=== PATIENT | male | born 1970 | race Caucasian/White ===

== ENCOUNTER 2022-12-10 15:44 | Inpatient (IN) | payer OTHER ==
[~2022-12-10] VITALS: Ht 172.7 cm; Wt 113.4 kg
[2022-12-10 15:51] VITALS: BP 215/125
[2022-12-10] MEDS ORDERED: CLONIDINE HYDROCHLORIDE 0.1 MG TAB PO ONE (16:00)
--- NOTE | 2022-12-10 16:08 | NUR ---
PT AMBULATED TO ER BED 4
[2022-12-10 16:31] LABS: BASOPHILS # (AUTO) 0.1 K/uL (0.00-0.22); BASOPHILS % (AUTO) 0.8 % (0.0-2.0); EOSINOPHILS # (AUTO) 0.1 K/uL (0-0.4); EOSINOPHILS % (AUTO) 1.9 % (0.0-4.0); HEMATOCRIT 46.5 % (36-52); HEMOGLOBIN 16.2 g/dL (12.0-18.0); LYMPHOCYTES # (AUTO) 1.9 K/uL (2.0-11.5); LYMPHOCYTES % (AUTO) 25.9 % (20.5-51.1); MEAN CORPUSCULAR HEMOGLOBIN 32 pg (27-31); MEAN CORPUSCULAR HGB CONC 35 g/dL (33-37); MEAN CORPUSCULAR VOLUME 90.4 fL (80-94); MONOCYTES # (AUTO) 0.6 K/uL (0.8-1.0); MONOCYTES % (AUTO) 8.7 % (1.7-9.3); NEUTROPHILS # (AUTO) 4.7 K/uL (1.8-7.7); NEUTROPHILS % (AUTO) 62.7 % (42.2-75.2); PLATELET COUNT (AUTO) 198 K/uL (140-450); RED BLOOD CELL COUNT(AUTO) 5.15 MIL/uL (4.20-6.10); RED CELL DISTRIBUTION WIDTH 13.6 % (11.6-13.7); WHITE BLOOD COUNT (AUTO) 7.4 K/uL (4.8-10.8)
--- NOTE | 2022-12-10 16:40 | NUR ---
US AT BEDSIDE
[2022-12-10 16:52] LABS: ANION GAP 12.1 (8-16); CARBON DIOXIDE 29.1 mmol/L (21-32); CREATININE 0.9 mg/dL (0.6-1.3); POTASSIUM 3.2 mmol/L (3.5-5.1); TOTAL BILIRUBIN 0.7 mg/dL (0.0-1.0)
[2022-12-10] MEDS ORDERED: ASPIRIN 325 MG TAB PO ONE (17:15)
[2022-12-10] MEDS ORDERED: POTASSIUM CHLORIDE 10 MEQ TABER PO ONE (17:15)
[2022-12-10] MEDS ORDERED: ZOLPIDEM 10 MG TAB PO PRN (18:00)
[2022-12-10] MEDS ORDERED: ACETAMINOPHEN 325 MG TAB PO PRN (18:00)
[2022-12-10] MEDS ORDERED: MAG SULF 2000 MG/WATER PREMIX 50 ML IV PRN (18:00)
[2022-12-10] MEDS ORDERED: DOCUSATE SODIUM 100 MG GELCAP PO PRN (18:00)
[2022-12-10] MEDS ORDERED: ONDANSETRON 4 MG/2 ML VIAL IVP PRN (18:00)
[2022-12-10] MEDS ORDERED: LORazepam 2 MG/ML VIAL IVP PRN (18:00)
--- NOTE | 2022-12-10 19:00 | NUR ---
PT IS WAITING TO BE [facility]LO[facility]. PT IS ROOM AIR AND AWAKE AND ALERT. AMBULATORY. HE IS A SYRIAN SPEKER
--- NOTE | 2022-12-10 19:18 | NUR ---
Pt report given to KIRSTIN Wilder. Transfer of care at this time.
--- NOTE | 2022-12-10 21:25 | NUR ---
PT WAS ADMITTED TO [facility]PARTMENT FROM [facility] WITH DIAGNOSIS OF HYPERTENSIVE URGENCY. PT IS AOX4, AMBULATORY, CAMEROONIAN SPEAKING, ABLE TO VERBALIZE NEEDS AND ABLE TO FOLLOW COMMANDS. PT IS ON ROOM AIR AND ON 2G SODIUM DIET. PT HAS IV ON RIGHT FOREARM GAUGE 20, SALINE LOCK. PT SKIN IS INTACT. PT WAS ORIENTED TO ROOM/HOSPITAL, BED BUTTONS AND CALL LIGHT. ALL SAFETY MEASURES IMPLEMENTED. BED IN LOW POSITION, BED WHEELS ON LOCK AND CALL LIGHT REACH REACH.
--- NOTE | 2022-12-10 21:37 | NUR ---
Patient will be admitted to care of [facility] . Admited to HYPERTENSIVE URGENCY. Will go to room 119 B . Belongings list completed. Report to DARNELL
[2022-12-10] MEDS: MORPHINE SULFATE 2 MG/ML SYR IVP PRN (22:08)
--- NOTE | 2022-12-10 22:08 | NUR ---
PT WAS GIVEN PRN PAIN MEDICATION DUE TO SCROTAL PAIN WITH PAIN SCALE OF 6/10. ALL SAFETY MEASURES IMPLEMENTED. BED IN LOW POSITION, BED WHEELS ON LOCK AND CALL LIGHT WITHIN REACH.
[2022-12-11] VITALS: BP 133/79
--- NOTE | 2022-12-11 | NUR ---
PT IS SLEEPING. CHEST RISE AND FALL SYMMETRICALLY NOTED. RESPIRATION IS EVEN AND UNLABORED. ALL SAFETY MEASURES IMPLEMENTED. BED IN LOW POSITION. BED WHEELS ON LOCK AND CALL LIGHT WITHIN REACH.
[2022-12-11 04:00] VITALS: BP 142/85
[2022-12-11 05:32] LABS: BASOPHILS % (AUTO) 0.7 % (0.0-2.0); EOSINOPHILS # (AUTO) 0.2 K/uL (0-0.4); EOSINOPHILS % (AUTO) 3.2 % (0.0-4.0); HEMATOCRIT 44.8 % (36-52); HEMOGLOBIN 15.4 g/dL (12.0-18.0); LYMPHOCYTES # (AUTO) 2.1 K/uL (2.0-11.5); LYMPHOCYTES % (AUTO) 30.3 % (20.5-51.1); MEAN CORPUSCULAR HEMOGLOBIN 31 pg (27-31); MEAN CORPUSCULAR HGB CONC 34 g/dL (33-37); MEAN CORPUSCULAR VOLUME 91.6 fL (80-94); MONOCYTES # (AUTO) 0.7 K/uL (0.8-1.0); MONOCYTES % (AUTO) 9.4 % (1.7-9.3); NEUTROPHILS # (AUTO) 3.9 K/uL (1.8-7.7); NEUTROPHILS % (AUTO) 56.4 % (42.2-75.2); PLATELET COUNT (AUTO) 172 K/uL (140-450); RED BLOOD CELL COUNT(AUTO) 4.89 MIL/uL (4.20-6.10); RED CELL DISTRIBUTION WIDTH 13.9 % (11.6-13.7); WHITE BLOOD COUNT (AUTO) 6.9 K/uL (4.8-10.8)
[2022-12-11 06:07] LABS: ANION GAP 11.4 (8-16); CARBON DIOXIDE 31.1 mmol/L (21-32); CREATININE 0.9 mg/dL (0.6-1.3); POTASSIUM 3.5 mmol/L (3.5-5.1)
--- NOTE | 2022-12-11 07:05 | NUR ---
RECEIVED REPORT FROM [facility] NURSE WATKINS FOR CONTINUITY OF CARE. PT IN STABLE CONDITION, NO SIGNS OF PAIN OR DISTRESS NOTED AT THIS TIME.
--- NOTE | 2022-12-11 07:17 | NUR ---
PT IS STABLE. ENDORSED PT TO MORNING SHIFT NURSE FOR CONTINUITY OF CARE.
--- NOTE | 2022-12-11 07:20 | NUR ---
CHECKED PT STILL SLEEPING. CHEST RISE AND FALL SYMMETRICALLY NOTED. RESPIRATION IS EVEN AND UNLABORED. ALL SAFETY MEASURES IMPLEMENTED. BED IN LOW POSITION, BED WHEELS ON LOCK AND CALL LIGHT WITHIN REACH. Addendum: 12/11/22 at 0720 by Paula Zavala RN WRONG TIME
[2022-12-11 08:00] VITALS: BP 168/105
--- NOTE | 2022-12-11 08:00 | NUR ---
SPOKE TO PT REGARDING ONSET OF SYMPTOMS, PT STATED HIS TESTICULAR SWELLING BEGAN OVER A YEAR AGO, HAS NOT GOTTEN IT CHECKED OUT DUE TO INSURANCE ISSUES. THE ACUTE ONSET OF PAIN BEGAN 2 WEEKS AGO. PT CHOSE TO COME TO THE ED DUE TO HIS HTN, TO WHICH HE STATED HE REGULARLY TAKES ATENOLOL 50MG, AND LOSARTAN 50MG.
[2022-12-11] MEDS: MORPHINE SULFATE 2 MG/ML SYR IVP PRN ×2 (08:37→22:04)
[2022-12-11] MEDS: hydrALAZINE 20 MG/ML VIAL IVP PRN (08:38)
[2022-12-11] MEDS: lisinopriL 10 MG TAB PO SCH (08:38)
[2022-12-11] MEDS: hydrALAZINE 10 MG TAB PO SCH ×3 (08:38→17:01)
[2022-12-11] MEDS: ASPIRIN 81 MG TAB.CHEW PO SCH (08:38)
--- NOTE | 2022-12-11 08:38 | NUR ---
MEDICATED PT WITH PRN MORPHINE FOR PAIN 8/10 IN TESTES, AND PRN HYDRALAZINE FOR BP 168/105.
--- NOTE | 2022-12-11 09:01 | NUR ---
PATIENT HAS BEEN SCREENED AND CATEGORIZED MODERATE NUTRITION RISK. PATIENT WILL BE SEEN WITHIN 3-5 DAYS OF ADMISSION. REVIEWED BY ESTHER SEN RD
[2022-12-11 12:00] VITALS: BP 159/85
--- NOTE | 2022-12-11 13:40 | NUR ---
ENDORSED PT TO [facility] NURSE CODEY FOR CONTINUITY OF CARE. PT IN STABLE CONDITION.
[2022-12-11 16:00] VITALS: BP 165/97
--- NOTE | 2022-12-11 18:01 | NUR ---
DISCHARGE PLANNING PATIENT IS A 52-YEAR-OLD MALE ADMITTED ON A 12/10/2022 FROM THE [facility]/ER DUE TO HYPERTENSIVE URGENCY. (PATIENT IS NORTHERN IRISH SPEAKING ONLY). RADHA MET WITH PATIENT AT BEDSIDE TO DISCUSS AND GATHER HIS COLLATERAL INFORMATION. PATIENT WAS AWAKE AND ALERT AT THE TIME OF THE MEETING, PATIENT REPORTED LIVING AT HOME WITH HIS FAMILY, TWO SISTERS IN [facility]. PATIENT REPORTED HAVING GOOD FAMILY SUPPORT AND THAT HIS SISTER KRYSTIN SWEET IS HIS EMERGENCY CONTACT AND MEDICAL DECISION MAKER. PATIENT STATED THAT HE DID NOT HAVE ADVANCE DIRECTIVES AND WAS INTERESTED ON THE A.D. INF. FORMS PROVIDED BY RADHA. PATIENT REPORTED NOT HAVING ANY ISSUES GETTING OR TAKING HIS MEDICATIONS FROM THE [facility] IN [place] AND [facility] IN [facility]. PER PATIENT HIS NEW PCP IS JANNIE URIBE AND HIS LAST VISIT WITH HIS PCP WAS YESTERDAY ON 12/10/2022 AT ABOUT 11:00AM RADHA DISCUSS WITH PATIENT ABOUT THE IMPORTANCE OF MAKING A FOLLOW UP APPOINTMENT WITHIN 5-7 DAYS OF DISCHARGE.PATIENT AGREED AND DECLINED FOR SW TO MAKE HIS APPOINTMENT STATED THAT HE WILL MAKE HIS OWN APPOINTMENT WHEN HE IS DISCHARGE FROM [facility]. PER PATIENT REPORTED NOT NEEDING ANY DME. PATIENT STATED THAT HE WILL BE ASSISTED BY HIS SISTER DONNA SWEET WITH TRANSPORTATION BACK HOME WHEN HE IS READY AND STABLE TO DISCHARGE. RADHA THANKED PATIENT FOR THE INF. PROVIDED AND LEFT THE ROOM. RADHA/KIRSTEN WILL FOLLOW UP NEEDED.
--- NOTE | 2022-12-11 19:25 | NUR ---
RECEIVED REPORT FROM DAY SHIFT NURSE. PT STABLE. ALL SAFETY MEASURES IN PLACE. WILL CONTINUE TO MONITOR AND CARE FOR PATIENT.
--- NOTE | 2022-12-11 19:30 | NUR ---
ENDORSE PATIENT IN STABLE CONDITION TO PM SHIFT NURSE THAT PIC SALINE LOCK AT L. FOREARM PATENT. INFORM PM SHIFT NURSE THAT BP MANAGE IS CRITICAL FOR THIS PATIENT
[2022-12-11 20:00] VITALS: BP 159/95
--- NOTE | 2022-12-11 20:30 | NUR ---
FULL ASSESSMENT COMPLETED. IV 20 GA LFA CLEAN, DRY, PATENT AND INTACT. A/0X4. SCROTAL SWELLING APPEARS 2-3X'S NORMAL SIZE. NO REDNESS OR DRAINAGE OR BLISTERING. ALL SAFETY MEASURES IN PLACE. CALL LIGHT WITHIN REACH. GAIT STEADY. BRP AD MERRITT. HS SNACK. DENIES NEEDS PRESENTLY.
--- NOTE | 2022-12-11 22:04 | NUR ---
LEFT INGUINAL AND SCROTUM DISCOMFORT 07/26. MORPHINE 2 MG IVP. BP 165/95 HR 74
--- NOTE | 2022-12-11 22:34 | NUR ---
MORPHNE 2MG EFFECTIVE IN RELIEVING PAIN 0/10 "I'M RELAXED".
[2022-12-12] VITALS: BP 168/104
[2022-12-12] MEDS: hydrALAZINE 20 MG/ML VIAL IVP PRN ×2 (00:19→11:38)
--- NOTE | 2022-12-12 00:19 | NUR ---
APRESOLINE 10 MG IVP FOR BP 168/104 HR 68. PAIN 0/10 "I'M RELAXED".
--- NOTE | 2022-12-12 01:19 | NUR ---
BP 147/87 HR 83
[2022-12-12 04:00] VITALS: BP 152/87
[2022-12-12 05:32] LABS: BASOPHILS # (AUTO) 0.1 K/uL (0.00-0.22); BASOPHILS % (AUTO) 0.8 % (0.0-2.0); EOSINOPHILS # (AUTO) 0.2 K/uL (0-0.4); HEMOGLOBIN 15.6 g/dL (12.0-18.0); LYMPHOCYTES % (AUTO) 29.7 % (20.5-51.1); MEAN CORPUSCULAR HEMOGLOBIN 32 pg (27-31); MEAN CORPUSCULAR HGB CONC 35 g/dL (33-37); MEAN CORPUSCULAR VOLUME 91.1 fL (80-94); MONOCYTES # (AUTO) 0.5 K/uL (0.8-1.0); NEUTROPHILS % (AUTO) 58.5 % (42.2-75.2); PLATELET COUNT (AUTO) 167 K/uL (140-450); RED BLOOD CELL COUNT(AUTO) 4.94 MIL/uL (4.20-6.10); RED CELL DISTRIBUTION WIDTH 13.7 % (11.6-13.7); WHITE BLOOD COUNT (AUTO) 6.8 K/uL (4.8-10.8)
[2022-12-12 05:55] LABS: ANION GAP 12.1 (8-16); CARBON DIOXIDE 29.1 mmol/L (21-32); CREATININE 0.8 mg/dL (0.6-1.3); POTASSIUM 3.2 mmol/L (3.5-5.1)
--- NOTE | 2022-12-12 06:30 | NUR ---
PT SLEPT WELL. REMAINS STABLE. NO C/O PAIN. SCROTAL SWELLING UNCHANGED.WILL ENDORSE TO A.M NURSE FOR CONTINUITY OF CARE.
--- NOTE | 2022-12-12 07:05 | NUR ---
RECEIVED REPORT FROM [facility] NURSE RAFFI FOR CONTINUITY OF CARE. PT SLEEPING, EASILY AROUSABLE BY VERBAL STIMULI. RESPIRATIONS EVEN AND UNLABORED ON RA. ON NUCLEAR PLANT INSTRUMENT TECHNICIAN. INITIAL ASSESSMENT DONE. POC DISCUSSED. CALL LIGHT WITHIN REACH. SAFETY PRECAUTIONS IN PLACE.
--- NOTE | 2022-12-12 07:30 | NUR ---
REPORT TO ALEXANDRA GANNON FOR CONTINUITY OF CARE. PT STABLE AND SAFETY MEASURES REMAIN IN PLACE.
[2022-12-12 08:00] VITALS: BP 159/98
[2022-12-12] MEDS: lisinopriL 10 MG TAB PO SCH (08:39)
[2022-12-12] MEDS: ASPIRIN 81 MG TAB.CHEW PO SCH (08:39)
[2022-12-12] MEDS: POTASSIUM CHLORIDE 10 MEQ TABER PO PRN (08:39)
[2022-12-12] MEDS: hydrALAZINE 10 MG TAB PO SCH ×3 (08:39→17:09)
--- NOTE | 2022-12-12 08:43 | NUR ---
ADMINISTERED DUE MEDS. KDUR GIVEN FOR POTASSIUM 3.2. PT TOLERATED WELL.
[2022-12-12] MEDS: MORPHINE SULFATE 2 MG/ML SYR IVP PRN (11:36)
--- NOTE | 2022-12-12 11:43 | NUR ---
PRN PAIN MEDICATION AND HYDRALAZINE ADMINISTERED FOR 8/10 PAIN AND 191/106 BP WITH HR 69
[2022-12-12 12:00] VITALS: BP_SYST 172; BP_SYST 191; BP_DIAS 103; BP_DIAS 106
--- NOTE | 2022-12-12 15:35 | NUR ---
PT CHECKED AND SEEN BY DR FIORE.
[2022-12-12 16:00] VITALS: BP 145/88
--- NOTE | 2022-12-12 16:42 | NUR ---
PT CHECKED AND SEEN BY DR RINCON.
--- NOTE | 2022-12-12 19:09 | NUR ---
ENDORSED PT TO CHEMICAL WASTE MANAGEMENT TECHNICIAN NURSE INGRID FOR CONTINUITY OF CARE. ALL NEEDS MET THROUGHOUT SHIFT. PT IS IN STABLE CONDITION.
--- NOTE | 2022-12-12 19:10 | NUR ---
RECEIVED PATIENT LYING ON THE BED, IS AWAKE, ALERT AND ORIENTED, DENIES PAIN UPON ASSESSMENT, NO SIGNS OF DISTRESS NOTED. IV SITE ON RIGHT AC, G20, PATENT AND INTACT, SALINE LOCK. CALL LIGHT WITHIN REACH.
[2022-12-12 20:00] VITALS: BP 155/100
--- NOTE | 2022-12-12 22:10 | NUR ---
CHECK ON PATIENT, PATIENT IS SITTING ON HIS CHAIR, WATCHING TV, DENIES PAIN AT THIS TIME. CALL LIGHT WITHIN REACH.
[2022-12-13] VITALS: BP 155/89
--- NOTE | 2022-12-13 02:40 | NUR ---
PATIENT IS ASLEEP, ALL SAFETY MEASURES IN PLACE.
[2022-12-13 04:00] VITALS: BP 148/87
[2022-12-13 05:14] LABS: BASOPHILS # (AUTO) 0.1 K/uL (0.00-0.22); BASOPHILS % (AUTO) 0.8 % (0.0-2.0); EOSINOPHILS # (AUTO) 0.2 K/uL (0-0.4); EOSINOPHILS % (AUTO) 2.6 % (0.0-4.0); HEMOGLOBIN 16.1 g/dL (12.0-18.0); LYMPHOCYTES # (AUTO) 2.2 K/uL (2.0-11.5); LYMPHOCYTES % (AUTO) 29.4 % (20.5-51.1); MEAN CORPUSCULAR HEMOGLOBIN 32 pg (27-31); MEAN CORPUSCULAR HGB CONC 35 g/dL (33-37); MEAN CORPUSCULAR VOLUME 90.7 fL (80-94); MONOCYTES # (AUTO) 0.7 K/uL (0.8-1.0); MONOCYTES % (AUTO) 9.4 % (1.7-9.3); NEUTROPHILS # (AUTO) 4.3 K/uL (1.8-7.7); NEUTROPHILS % (AUTO) 57.8 % (42.2-75.2); PLATELET COUNT (AUTO) 170 K/uL (140-450); RED BLOOD CELL COUNT(AUTO) 5.08 MIL/uL (4.20-6.10); RED CELL DISTRIBUTION WIDTH 13.7 % (11.6-13.7); WHITE BLOOD COUNT (AUTO) 7.4 K/uL (4.8-10.8)
[2022-12-13 06:26] LABS: ANION GAP 7.6 (8-16); CARBON DIOXIDE 29.8 mmol/L (21-32); POTASSIUM 3.4 mmol/L (3.5-5.1)
--- NOTE | 2022-12-13 07:10 | NUR ---
ENDORSED PATIENT TO DAY NURSE FOR CONTINUITY OF CARE. NEEDS MET THROUGHOUT THE SHIFT. PATIENT IN STABLE CONDITION.
--- NOTE | 2022-12-13 07:11 | NUR ---
RECEIVED REPORT FROM KIRSTIN HU FOR CONTINUITY OF CARE. PT AWAKE IN BED. RESPIRATIONS EVEN AND UNLABORED ON RA. NO COMPLAINTS OF PAIN, DIZZINESS, SOB. ON GRAPHICS EDIT TECHNICIAN. INITIAL ASSESSMENT DONE. POC DISCUSSED WITH THE PT AND KIRSTIN JACKSON. CALL LIGHT WITHIN REACH. SAFETY PRECAUTIONS IN PLACE.
[2022-12-13 08:00] VITALS: BP 168/95
--- NOTE | 2022-12-13 08:00 | NUR ---
Patient's Plan of Care was discussed and reviewed with RENE: JAIRO
[2022-12-13] MEDS: ASPIRIN 81 MG TAB.CHEW PO SCH (08:26)
[2022-12-13] MEDS: hydrALAZINE 10 MG TAB PO SCH ×2 (08:26→12:34)
[2022-12-13] MEDS: lisinopriL 10 MG TAB PO SCH (08:26)
[2022-12-13] MEDS: POTASSIUM CHLORIDE 10 MEQ TABER PO PRN (08:26)
[2022-12-13] MEDS: hydrALAZINE 20 MG/ML VIAL IVP PRN (10:03)
--- NOTE | 2022-12-13 10:03 | NUR ---
SBP 169. PRN HYDRALAZINE GIVEN BY KIRSTIN ROSEN. ASYMPTOMATIC. PT STATED HE FELT OK JUST LIKE HIS NORMAL DAY.
--- NOTE | 2022-12-13 11:45 | NUR ---
BP RE-ASSESSED. PT COMPLAINING OF SCROTAL PAIN 07/26. INFORMED RN. RN TO GIVE PRN MED FOR PAIN. WILL RE-ASSESS BP.
[2022-12-13 12:00] VITALS: BP 169/103
[2022-12-13] MEDS: MORPHINE SULFATE 2 MG/ML SYR IVP PRN (12:30)
[2022-12-13] MEDS ORDERED: SPIRONOLACTONE 25 MG TAB PO SCH (13:20)
--- NOTE | 2022-12-13 13:32 | NUR ---
PT CHECKED AND SEEN BY DR RINCON. PT DOWNGRADED TO MS. ADMINISTERED SPIRONOLACTONE MD ORDERED.
--- NOTE | 2022-12-13 14:00 | NUR ---
PT CHECKED AND SEEN BY DR FIORE.
[2022-12-13] MEDS ORDERED: LISI20TA29 PO (14:07)
[2022-12-13] MEDS ORDERED: ASPI81CT95 PO (14:07)
[2022-12-13] MEDS ORDERED: SPIR25TA PO (14:07)
[2022-12-13 14:59] VITALS: BP 155/89
[2022-12-13 16:00] VITALS: BP 147/95
--- NOTE | 2022-12-13 17:10 | NUR ---
PT DC HOME. DC PAPERS DISCUSSED WITH THE PT. PT VERBALIZED UNDERSTANDING. REMOVED IV CATHETER TIP INTACT, REMOVED ID WRIST BAND. ALL BELONGINGS TAKEN UPON DC. PT PICKED UP BY FAMILY MEMBER. PT IS IN STABLE CONDITION.
[2022-12-14] MEDS ORDERED: lisinopriL 20 MG TAB PO SCH (09:00)
== END 2022-12-13 17:10 | disposition home or self-care (01) | DRG 199 ==
LOC: MED 15:44 → MTU 18:15
PROVIDERS: ADMIT Internal Medicine; ATTEND Internal Medicine
DX: I16.0 Hypertensive urgency (principal); I21.A1 Myocardial infarction type 2; E83.51 Hypocalcemia; N43.3 Hydrocele, unspecified; Z68.38 Body mass index [BMI] 38.0-38.9, adult; R73.9 Hyperglycemia, unspecified; E66.9 Obesity, unspecified; E87.6 Hypokalemia; Z20.822 Contact with and (suspected) exposure to COVID-19
CPT/HCPCS: 36415; 71045; 76870; 80048; 80053; 83735; 83880; 84484; 85025; 87081; 99285; J0360; J2270; J2405; Q0092